=== PATIENT | male | born 1940 | race Caucasian/White ===

== ENCOUNTER 2024-08-29 10:03 | Outpatient (CLI) | payer MEDICARE, SELFPAY ==
--- NOTE | ~2024-08-29 | XR_ITS ---
XR hand RT min 3V Ordering provider: Basilio Mo MD History: . RT HAND PAIN NEAR 1ST [facility] JOINT, NKI . Comparison: None. FINDINGS: BONES: No acute fracture or dislocation. JOINT SPACES: Narrowing of the distal interphalangeal joints. Narrowing of the joint between the scap hoid and trapezium bone. SOFT TISSUES: Normal. IMPRESSION: No acute osseous abnormality right hand. Polyarticular osteoarthritic changes. Reviewed, dictated and finalized at location A. [facility]NA[facility]
== END 2024-08-29 10:04 | disposition home or self-care (01) ==
PROVIDERS: PCP Internal Medicine; Visit Provider Plastic Surgery
DX: M18.11 Unilateral primary osteoarthritis of first carpometacarpal joint, right hand (principal); M19.041 Primary osteoarthritis, right hand
CPT/HCPCS: 73130